=== PATIENT | female | born 1995 | race Caucasian/White ===

== ENCOUNTER 2019-09-16 12:27 | Emergency (ER) | payer OTHER ==
[~2019-09-16] VITALS: Ht 157.5 cm; Wt 91.4 kg
[2019-09-16 13:45] VITALS: BP 129/80
[2019-09-16 13:47] LABS: BASOPHILS # (AUTO) 0.02 x10^3/uL (0-0.1); BASOPHILS % (AUTO) 0 % (0-1); EOSINOPHILS # (AUTO) 0.08 x10^3/uL (0-0.4); EOSINOPHILS % (AUTO) 1 % (1-7); LYMPHOCYTES # (AUTO) 2.32 x10^3/uL (1-3.4); LYMPHOCYTES % (AUTO) 34 % (22-44); MD NO; MEAN CORPUSCULAR HEMOGLOBIN 30.1 pg (27.0-34.8); MEAN CORPUSCULAR HGB CONC 34.1 g/dL (32.4-35.8); MEAN CORPUSCULAR VOLUME 88.4 fL (80-100); MEAN PLATELET VOLUME 7.7 fL (7.4-10.4); MONOCYTES # (AUTO) 0.44 x10^3/uL (0.2-0.8); MONOCYTES % (AUTO) 6 % (2-9); NEUTROPHILS # (AUTO) 4.01 x10^3/uL (1.8-6.8); NEUTROPHILS % (AUTO) 58 % (42-75); PLATELET COUNT 254 x10^3/uL (130-400); RED BLOOD COUNT 4.99 x10^6/uL (3.82-5.3); RED CELL DISTRIBUTION WIDTH 12.8 % (9.6-15.2)
--- NOTE | 2019-09-16 13:47 | NUR ---
PT BACK FROM CT. PT C/O OF RUQ PAIN 11/14. PROVIDER NOTIFIED. MONITOR IN PLACE.
[2019-09-16 13:48] LABS: MICROSCOPIC INDICATED
[2019-09-16 13:52] LABS: CULTURE INDICATED? YES
[2019-09-16 13:58] LABS: ALANINE AMINOTRANSFERASE 24 U/L (12-78); ALBUMIN 3.8 g/dL (3.4-5.0); ANION GAP 6 mmol/L (5-15); CALCIUM 9.4 mg/dL (8.5-10.1); CHLORIDE 106 mmol/L (98-107); CREATININE 0.91 mg/dL (0.55-1.02)
[2019-09-16 14:02] LABS: ALKALINE PHOSPHATASE 132 U/L (45-117); BILIRUBIN,TOTAL 0.2 mg/dL (0.2-1.0); TOTAL PROTEIN 8.3 g/dL (6.4-8.2)
== END 2019-09-16 14:24 | disposition home or self-care (01) ==
LOC: ED 13:16
DX: N39.0 Urinary tract infection, site not specified (principal); R11.2 Nausea with vomiting, unspecified; R00.0 Tachycardia, unspecified
CPT/HCPCS: 36415; 74022; 80053; 81001; 83690; 84703; 85025; 87086; 99284

== ENCOUNTER → 2020-07-23 | Outpatient (CLI) | payer OTHER ==
[~2020-07-23] MED LIST: OMNIPAQUE 350 MG/ML, 100ML BOTTLE ONE
== END | disposition home or self-care (01) ==
LOC: CFH 14:23
PROVIDERS: ATTEND Family Medicine
DX: R10.31 Right lower quadrant pain (principal)
CPT/HCPCS: 74177; Q9967